=== PATIENT | male | born 1935 | race Two or more races ===

== ENCOUNTER 2021-06-06 16:17 | Emergency (ER) | payer OTHER ==
[~2021-06-06] VITALS: Ht 162.6 cm; Wt 61.2 kg
[2021-06-06] MEDS ORDERED: ELIQUIS5 M1 (16:51)
[2021-06-06] MEDS ORDERED: LIPITOR20 MG (16:51)
[2021-06-06] MEDS ORDERED: AMLODIPINE-OLM1 EACH (16:51)
[2021-06-06] MEDS ORDERED: PEPCID AC20 MG (16:51)
[2021-06-06] MEDS ORDERED: CARVEDILOL6.25 M1 (16:52)
[2021-06-06] MEDS ORDERED: ZESTRIL5 MG (16:52)
== END 2021-06-06 22:35 | disposition home or self-care (01) ==
LOC: ER 16:17
DX: R50.9 Fever, unspecified (principal); Z20.822 Contact with and (suspected) exposure to COVID-19